=== PATIENT | male | born 1990 | race Caucasian/White ===

== ENCOUNTER 2016-12-02 12:25 | Observation (INO) | payer OTHER ==
[~2016-12-02] VITALS: Ht 175.3 cm; Wt 95.4 kg
[2016-12-02] VITALS (9 sets, daily range): BP systolic 100–134; BP diastolic 55–79; PULSE 61–92; RESP 15–24; O2SAT 98–100
[~2016-12-02 12:25] MED LIST: HYOS-21 SL; LORA2TAB PO; Propofol 10,000 mCg/mL 20 mL Inj ONE; SERT20OR6 PO; TRAZ-118 PO
--- NOTE | 2016-12-02 12:46 | ED.REPORT ---
HPI-General Illness Date of Service Dec 02, 2016 ED Provider: Jarred Walker MD Patient is a 26-year-old man with history of cholestasis and liver failure in 2016. He presents with acute onset dizziness, abdominal pain, and black stools this morning. He was in his usual state of health today at work when these symptoms came on. As abdominal pain is a throbbing, dull, constant epigastric pain, he additionally feels pain in his back. He will occasionally have sharp pains as well. This morning he had 2 black stools. He has some burning substernal chest pain. Over the last week he has had 4-5 episodes of drinking quite a bit of alcohol, as he did last night. He is feeling nauseous with no vomiting. He has had some bouts of blurry vision. He does not have a headache , shortness of breath, weakness, or diarrhea. Nursing Notes Stated Complaint: STOMACH PAIN Chief Complaint: Male Abdominal Pain Nursing Notes Reviewed: Yes Allergies: Uncoded Allergies: BEE STINGS (Allergy, Intermediate, swelling, 08/06/14) Scheduled Sertraline HCl (Sertraline) 20 Mg/1 Ml Oral.conc 75 MG PO DAILY Trazodone (Trazodone) 100 Mg Tablet 100-200 MG PO HS Scheduled PRN Hyoscyamine SL (Hyoscyamine SL) 0.125 Mg Subl 0.125 MG SL Q4 PRN PRN abdominal spasm Lorazepam (Lorazepam) 2 Mg Tablet 2 MG PO HS PRN PRN For Insomnia General Time Seen by MD: 12:42 Chief Complaint Abdominal pain, Dizziness Hx Obtained From: Patient Arrived By: Walk-in Sudden in Onset?: Yes Past Medical History Past Medical History Notes: October 2015 ABDOMINAL US IMPRESSION: 1. No findings to suggest biliary ductal obstruction. 2. Possible polyp within the gallbladder fundus, with its size greater than 1 cm warranting surgical consult. Consider confirmation with repeat limited abdominal ultrasound when patient is fasting, for optimal gallbladder distention. Dictated by: Jorge Lua M.D. on 11/06/2015 at 17:53 Past Medical History Admitted and diagnosed with acute cholestatic jaundice and pruritus possibly related to anabolic steroid use. Past Surgical History multiple orthopedic surgeries Multiple ear surgeries In surgery Appendectomy Family History No family history of colon cancer, ulcerative colitis, Crohn's, celiac disease. Father had OR at the age of 56 as did his father. Positive family history of diabetes. Smoking History Never Smoker Social History Pt reports occasional recreational cocaine use He denies recently using anabolic steroids and testosterone Alcohol Use: "Social" ("quite a few" 3-4 times last week and last night) Drug Use: Denies drug use Other Social History: Good social support, Local resident Ambulatory Status Independent Review of Systems A comprehensive 10 point review of systems was conducted with the patient and found to be negative except as above in the History of Present Illness. Full Review of Systems Constitutional: Denies: Fever Eyes: Denies: Blurred bilateral Ears / Nose / Throat: Denies: Sore throat Respiratory: Denies: Shortness of breath Cardiovascular: Denies: Chest pain GI: Reports: Abdominal pain, Bloody/tarry stool, Melena Male: Denies Testicular pain Musculoskeletal: Denies: Back pain Hematologic: Denies Bruising Endocrine: Denies: Polyuria Skin: Denies Rash Allergy / Immune: Denies: Itching Neurologic: Denies: Headache Psychiatric: Denies: Change mental status Complete sys rev & neg: except as marked. Physical Exam General: mild distress, well-developed, well-nourished, appropriately interactive HEENT: Normocephalic, atraumatic. External ears without defect. Pupils equal, round, and reactive to light and accommodation. Anicteric sclerae, moist conjunctivae, and no lid lag. Oropharynx free of erythema and cobble stoning with moist mucosa. Neck: Supple with full range of motion. No jugular venous distension. No lymphadenopathy or thyromegaly. Cardiovascular: mild tachycardia, regular rhythm with no murmurs, rubs, or gallops appreciated Pulmonary: Clear to auscultation bilaterally with no crackles, wheezes, or rhonchi. Normal respiratory effort with no use of accessory muscles. Abdomen: Bowel tones present. Soft, mildly tender in epigastric and right upper quadrant regions, nondistended. No hepatosplenomegaly or masses appreciated. Extremities: No clubbing, cyanosis, edema, or lymphadenopathy appreciated. Skin: Normal temperature, turgor, and texture; no rash, ulcers, or subcutaneous nodules appreciated. Neurological: Cranial nerves grossly intact. Normal muscle strength, tone, and bulk. Coordination, and sensory function within normal limits. No gait impairment. Psychiatric: Normal mood and affect. Alert and oriented to person, place, and time. Vital Signs Vital Signs Date Time Temp Pulse Resp B/P Pulse Ox O2 Delivery O2 Flow Rate FiO2 12/02/16 16:48 68 20 119/63 100 Room Air 12/02/16 14:36 76 19 125/63 100 Room Air 12/02/16 12:27 36.4 92 24 123/73 100 Room Air Initial VS: Reviewed, Vital signs normal Interpretation & Diagnostics Lab Results Interpretation Result Diagram: 12/02/16 1330 12/02/16 1330 Test 12/02/16 13:30 White Blood Count 3.8th/mm3 (3.8-10.1) Red Blood Count 4.91mil/mm3 (4.40-5.80) Hemoglobin 15.1g/dL (13.8-17.2) Hematocrit 43.3% (41.0-50.0) Mean Corpuscular Volume 88.2fL (81-100) Mean Corpuscular Hemoglobin 30.8pg (27.0-35.0) Mean Corpuscular Hemoglobin Concent 34.9% (32.0-37.0) Red Cell Distribution Width 12.5% (12.3-15.4) Platelet Count 160bil/L (150-400) Neutrophils (%) (Auto) 67.4% (40-74) Lymphocytes (%) (Auto) 25.3% (14-46) Monocytes (%) (Auto) 5.5% (4-12) Eosinophils (%) (Auto) 1.3% (0-5) Basophils (%) (Auto) 0.5% (0-3) Prothrombin Time 10.8sec (8.1-12.5) Prothromb Time International Ratio 1.01ratio Urine Color Straw (YELLOW) Urine Appearance Slightly cloudy Urine pH 8.0 (5.0-8.0) Urine Specific [place] 1.015 (1.003-1.035) Urine Protein Negativemg/dL (NEG,TRACE) Urine Glucose (UA) Negativemg/dL (NEGATIVE) Urine Ketones Negativemg/dL (NEGATIVE) Urine Occult Blood Negative (NEGATIVE) Urine Nitrite Negative (NEGATIVE) Urine Bilirubin Negative (NEGATIVE) Urine Urobilinogen Normalmg/dL (NORMAL) Urine Leukocyte Esterase Negative (NEGATIVE) Urine RBC 0-2/hpf (0-2) Urine WBC 0-5/hpf (0-5) Urine Epithelial Cells Occasional/hpf (NONE-MOD) Urine Crystals Amorphous phosphates Urine Bacteria Few/hpf (NONE-FEW) Urine Hyaline Casts None/lpf (NONE) Urine Granular Casts None seen (NONE SEEN) Urine Waxy Casts None seen (NONE SEEN) Urine Red Blood Cell Casts None seen (NONE SEEN) Urine White Blood Cell Casts None seen (NONE SEEN) Urine Mucus None seen (None Seen) Urine Trichomonas None seen (NONE SEEN) Urine Yeast None (NONE SEEN) Urinalysis Comment None Urine Culture Reflexed Not indicated Hold Urine Received (Received) Sodium Level 138mEq/L (134-144) Potassium Level 4.2mEq/L (3.5-5.2) Chloride Level 101mEq/L (97-108) Carbon Dioxide Level 24mmol/L (18-29) Blood Urea Nitrogen 11mg/dL (6-20) Creatinine 0.82mg/dL (0.76-1.27) Estimat Glomerular Filtration Rate 121mL/min (>59) Glucose Level 100mg/dL (60-99) Lactic Acid Level 1.0mmol/L (0.4-2.0) Calcium Level 9.6mg/dL (8.5-10.1) Magnesium Level 1.9mg/dL (1.6-2.6) Total Bilirubin 0.3mg/dL (0.0-1.2) Aspartate Amino Transf (AST/SGOT) 23U/L (0-50) Alanine Aminotransferase (ALT/SGPT) 18U/L (0-44) Alkaline Phosphatase 68U/L (25-150) Total Protein 7.5g/dL (6.4-8.4) Albumin 4.6g/dL (3.4-5.0) Lipase 19U/L (13-60) Lab Results Interpretation: H&H normal. Stool guaiac positive INR normal ECG Interpretation ECG Interpretation: ECG done due to substernal chest pain and family history of early cardiac Regular rate at 62 Probable early repolarization pattern Time: 14:24 Interpreted by: ED physician Re-Eval/Medical Decision Med Decision/Clinical Course Patient is a 26 year old male with past medical history of liver failure and cholestasis one year ago. Today he presents with acute onset dizziness, epigastric pain, nausea, and melena. Vital signs are stable, H&H normal. Patient had 40 mg IV Protonix, 1 L fluid. He had improvement in his symptoms and decreased pain down to 2/10. Patient's Garner Blatchford bleeding score is 3 due to melena and previous hepatic disease history which puts him in the high risk for bleed category. Dr. Rodriguez of gastroenterology was consulted. He will see patient, and plans to do upper endoscopy today. Patient remained in stable condition throughout his stay in the emergency department. Patient's questions were answered. He was consulted on diagnosis, laboratories results, and alcohol cessation. Plan admission for further management and evaluation. Source of Hx: Old records Time of Eval: 14:30 Re-Evaluation/Progress Note: Patient appears more calm, pain is decreased. Consultation #1: Referral / Consult Name: Suman Rodriguez MD Requested Call at: 14:35 Call Returned at: 14:40 Show Card Writer: Will see patient Consultation #2: Referral / Consult Name: Layton Hatfield MD Consulted With: Hospitalist Call Returned at: 16:55 Show Card Writer: Will see patient, Agrees with eval, Agrees with plan, Accepts admit Counseled Regarding: Diagnosis, Lab results, Need for admission Discharge & Departure Primary Impression: GI bleed GI bleed type/associated pathology: melena Qualified Code: K92.1 - Melena Additional Impression: Melena Disposition: ADMITTED TO HOSPITAL Discharge Condition All VS Reviewed: Yes Condition: Stable Patient Instructions: Gastritis (ED) Referrals: Alberto Pineda DO (PCP) [facility] Attending Statement I saw and evaluated the patient independently of the resident. I agree with the plan and findings as documented above. copies to: Janki Alexander DO; [facility] Jarred Walker MD Dec 02, 2016 12:46 Janki Alexander DO Dec 02, 2016 13:53
[2016-12-02] MEDS ORDERED: 0.9% Sodium Chloride 1,000 ML IV ONE (13:26)
[2016-12-02] MEDS ORDERED: Pantoprazole 4 mg/mL 10 mL Inj IVPUSH ONE ×2 (13:30→17:10)
[2016-12-02 13:49] LABS: BASOPHILS % (AUTO) 0.5 % (0-3); EOSINOPHILS % (AUTO) 1.3 % (0-5); MONOCYTES % (AUTO) 5.5 % (4-12); Mean Corpuscular Hemoglobin 30.8 pg (27.0-35.0); Mean Corpuscular Volume 88.2 fL (81-100); NEUTROPHILS % (AUTO) 67.4 % (40-74); Platelet Count 160 bil/L (150-400)
[2016-12-02] MEDS: Ondansetron 2 mg/mL 2 mL Inj IVPUSH PRN ×2 (13:49→16:48)
[2016-12-02 14:21] LABS: Magnesium 1.9 mg/dL (1.6-2.6)
[2016-12-02 14:46] LABS: APPEARANCE,URINE SLIGHTLY CLOUDY (CLEAR,HAZY); COLOR,URINE STRAW (YELLOW); OCCULT BLOOD,URINE NEGATIVE (NEGATIVE); UROBILINOGEN,URINE NORMAL (NORMAL)
[2016-12-02 15:29] LABS: INR 1.01 ratio
[2016-12-02] MEDS ORDERED: 0.9% Sodium Chloride 1,000 ML IV SCH (16:20)
[2016-12-02] MEDS ORDERED: Pantoprazole Inj 80 MG in 0.9% Sodium Chloride 80 ML IV SCH (16:35)
--- NOTE | 2016-12-02 16:59 | PCM.HPMED ---
Subjective Date of Service Dec 02, 2016 Primary Provider: Admitting Physician: Primary Care Physician: Alberto Pineda DO Attending Physician: Chief Complaint: Abdominal pain, blood in the stool. 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 Fecal occult blood in the emergency department was positive. GI was consulted and planning endoscopy. Patient is otherwise stable with stable hemoglobin and no active bleeding now. Review of Systems: REVIEW OF SYSTEMS: GENERAL: no malaise, no fevers., SEE HPI HEENT: Negative for frequent or significant headaches All other reviewed and negative other than HPI. Allergies Uncoded Allergies: BEE STINGS (Allergy, Intermediate, swelling, 08/06/14) Home Medications Patient does not take any medications PMH Hepatitis caused by steroids Family History Hypertension Social History Hx Alcohol Use: Yes (LIVER CIRRHOSIS;"CUTTING DOWN ON ETOH.") Hx Substance Use: Yes (MARIJUANA, COCAINE OCCASIONAL) Hx Tobacco Use: No Smoking Status: Never Smoker Exam Vital Signs Vital Sign - Last Date Time Temp Pulse Resp B/P Pulse Ox O2 Delivery O2 Flow Rate FiO2 12/02/16 16:48 68 20 119/63 100 Room Air 12/02/16 12:27 36.4 Exam PHYSICAL EXAM: GENERAL: Alert, not in distress, cooperative HEAD: atraumatic, normocephalic, no bruises. EYES: PRICILA, EOMI, anicteric, able to fully open and close eyelids SKIN: Skin color normal, turgor normal. No visible rashes or lesions. EAR, NOSE, MOUTH, THROAT: Lips, oral mucosa, tongue are moist, pink, no lesions. NECK: supple ROM normal. RESPIRATORY: Lungs clear to auscultation. Good diaphragmatic excursion.d. CARDIAC: normal S1 and S2; no rubs, murmurs, or gallops; regular rhythm ABDOMEN: Abdomen soft, mildly tender in the epigastrium. BS normal. No masses or organomegaly. MUSCULOSKELETAL: ROM full, muscles are not tender EXTREMITIES: no pitting edema in LE, no new deformities or skin discoloration. NEURO: Alert, oriented X 3, Cranial nerves II-XII intact, Grossly normal motor function. PULSES: 2+ radial, 2+ carotid Lab and Diagnostics Result Diagram: 12/02/16 1330 12/02/16 1330 Assessment & Plan 26-year-old male with a past medical history of hepatitis presented to the emergency department complaining of epigastric abdominal pain and black and distal. Fecal occult blood test was positive. GI was consulted and planning endoscopy. Hemoglobin is stable, vitals are stable. Plan - will monitor CBC daily - f/u with GI - c/w current meds, protonix IV, IVF DVT PROPHYLAXIS: Relation Code status - full code Disposition: discharge probably tomorrow Plan of care discussed with ED physician; Labs reviewed. Plan of care, diagnostic procedures and available alternatives were discussed and reviewed with patient/. All questions answered. Patient verbalized understanding, approved and agreed to plan of care. Resuscitation Status: CPR: Attempt Resuscitation Layton Hatfield MD Dec 02, 2016 16:59
[2016-12-02] MEDS ORDERED: Alum-Mag Hydrox-Simeth 30 mL Suspension PO PRN (17:05)
[2016-12-02] MEDS ORDERED: Polyethylene Glycol (PEG) 17 Gm Powder PO PRN (17:05)
[2016-12-02] MEDS ORDERED: Ondansetron 2 mg/mL 2 mL Inj IVPUSH PRN (17:05)
[2016-12-02] MEDS ORDERED: [UNRECOGNIZED DRUG - OTHER] PO (17:22)
[2016-12-02] MEDS ORDERED: MILK175C4 PO (17:22)
[2016-12-02] MEDS ORDERED: MULT-676 PO (17:22)
--- NOTE | 2016-12-02 17:26 | CONS ---
[address] [address] CONSULTATION REPORT PATIENT: LG CHING : 1990 MR#: [id number] ADMIT: 12/02/2016 JOB ID: [id number] DATE OF SERVICE: 12/02/2016 REASON FOR CONSULTATION: It was pleasure seeing the patient at [facility] for abdominal pain and melena. HISTORY OF PRESENT ILLNESS: This is a 26-year-old gentleman who had history of cholestatic jaundice with pruritus due to anabolic steroids and testosterone use. He was treated medically and was followed by Dr. Castro in my department. The patient was treated medically and he recovered. At the time he was also drinking significant alcohol and he stopped drinking alcohol for a while, then he resumed drinking his alcohol again, and over the weekend he drank alcohol including whiskey multiple times, as well as a significant amount of beer. He also used cocaine. He also had some beer yesterday. This morning he woke up and had sudden onset of throbbing dull, moderately intense epigastric pain radiating to the back. Occasionally it was intermittently sharp, which caused him to stop what he is doing. Then this was followed by two episodes of black stools. Because of this, the patient came to the emergency department. In the emergency department he was hemodynamically stable and they saw a stool which was black and was guaiac positive. However, his laboratory data were normal with hemoglobin 15, INR of 1. Chemistry showed BUN of 11, creatinine of 0.82, and LFTs were otherwise normal. PAST MEDICAL HISTORY: As above. PAST SURGICAL HISTORY: None. SOCIAL HISTORY: Alcohol use, as well as occasional cocaine. FAMILY HISTORY: Noncontributory. ALLERGIES: BEE STINGS. MEDICATIONS: He is on Zofran and pantoprazole here in the emergency department. PHYSICAL EXAMINATION: Vitals showed temp of 36.4, pulse 68, respiration 20, blood pressure 119/63. Head and neck: No icterus. Lungs: Clear. Cardiovascular: Regular rate and rhythm. Normal S1 and S2. Abdomen: Soft. Mild epigastric tenderness, without any guarding, rebound, or firmness. Nondistended, with normoactive bowel sounds. Extremities: No pitting edema of the ankles. Skin shows no jaundice. LABORATORY DATA: As above. IMPRESSION: This is a gentleman with epigastric pain and significant alcohol use. He was doing well until this morning. Did not use any drugs since over the weekend. He has been drinking alcohol. Guaiac positive, with melena reported. Hemodynamically stable. Hemoglobin normal. RECOMMENDATION: 1. Agree with Protonix. 2. EGD with anesthesia. 3. NPO for now.
--- NOTE | 2016-12-02 18:40 | NUR ---
Arrival to [facility] Rm 1001 Pt arrived to [facility] Rm 1001, A&Ox3, able to HUMPHREYS, answers questions appropriately; IV NS 100/hr infusing, c/o 10/25 abd, sharp, stabbing pain, pt NPO at this time and to be taken to ENDO soon. Tucked in to bed and friends at BS, report given to NOC shift ROSA MARIA Mejia.
[2016-12-02] MEDS: 0.9% Sodium Chloride 1,000 ML IV SCH (19:14)
--- NOTE | 2016-12-02 19:30 | NUR ---
Off floor to Endo Pt. off floor to Endo at 1910. Transported via wheelchair via sound effects technician.
--- NOTE | 2016-12-02 19:54 | PCM.ENDEGD ---
EGD Date of Service: Dec 02, 2016 Physician Suman Rodriguez Pre Procedure Diagnosis: Melena and abdominal pain Post Procedure Dx & Findings: Diffuse erosive gastropathy Procedure Esophagogastroduodenoscopy PROCEDURE IN DETAIL: Sedation given by anesthesiology After proper sedation, Olympus video endoscope was inserted into patient's mouth and esophagus was successfully intubated. Scope introduced esophagus. Esophagus showed normal shiny whitish mucosa consistent with squamous cell component. Z line was intact at 40 cm from the incisors. Scope further advanced to the stomach. Diffuse gastric atrophy with bumpy mucosa with multiple sub millimeter erosions from antrum to the body of the stomach. On the fundus, there were streaks of erosions with surrounding redness. Multiple biopsies obtained throughout the entire stomach. Cardia fundus body antrum pylorus were all visualized. Retroflexion was done. Stomach was easily inflated and deflatable using air. Scope further advanced to the distal duodenum. Duodenum revealed normal villous structures with normal appearing folds without any mass ulcer erosion. Impression Erosive gastropathy. May explain the melena and guaiac positive stool Something like this should not be causing anemia. Recommendation Advanced diet as tolerated Switch to oral PPI Presedation Assessment Risks and Benefits Informed consent was obtained from the patient after all risks and benefits including but not limited to drug reaction, infection, pain, bleeding, perforation, as well as alternatives were discussed. Patient monitoring Continuous pulse oximetry, cardiac monitoring, blood pressure monitoring, IV access, and oxygen at 2L per nasal cannula. Complications There were no periprocedural complications identified. Post Procedure Plan Post Procedure Recommendations 1. Restrict activities today. 2. Resume normal activities in the morning. 3. Resume medications. 4. GERD behavioral modification: - Avoid fatty, acidic, spicy, large meals - Do not lie down after meals - Do not eat or drink anything for at least 2 1/2 hours before going to bed at night - Discontinue tobacco and alcohol - Decrease or avoid caffeine - Avoid chocolate and mints - Decrease weight - Avoid aspirin and non steroidal anti-inflammatory agents (NSAID) such as Aleve, Advil, Mobic, Naproxen, Ibuprofen, etc 5. Add proton pump inhibitor. Take 30 minutes before 1st meal of the day. 6. Patient informed of normal post procedure side effects as bloating, drowsiness, blood streaking in the stool 7. If gastric biopsy reveal H.pylori, continue with appropriate treatment 8. If small bowel biopsy reveals celiac, continue with appropriate treatment 9. Please don't hesitate to call me with any questions Suman Rodriguez MD Dec 02, 2016 19:54
[2016-12-02] MEDS ORDERED: Lactated Ringer's 1,000 ML IV ONE (19:56)
--- NOTE | 2016-12-02 20:41 | NUR ---
Pt. back on floor Pt. came back on [facility] floor at 2029. Transported via endo bed via endo RN.
[2016-12-03 00:20] VITALS: BP 137/85; PULSE 65; RESP 18; O2SAT 98
--- NOTE | 2016-12-03 03:19 | NUR ---
Pain/ Diet Pt. experiencing abdominal pain. IV morphine given and effective for pain. Pt. tolerating clear liquids well with no nausea noted. Will continue to monitor.
[2016-12-03 04:36] VITALS: BP 115/71; PULSE 54; RESP 16; O2SAT 98
[2016-12-03] MEDS: 0.9% Sodium Chloride 1,000 ML IV SCH (04:43)
--- NOTE | 2016-12-03 07:44 | NUR ---
Social Work: Screening D: EMR reviewed. Pt is a 26 y/o male admitted [facility], with no readmit risk score assigned, for GI Bleed per H&P. Pt's insurance is [employer] and PCP is Alberto Pineda DO. Pt's NOK is mother Lisbeth Schroeder ([phone]). Pt lives at home with friends/roommates in [place]. Per EMR, pt has a hx of ETOH and substance abuse. Due to hx with substance abuse, pt screens in for a full assessment. SW will discuss pt with MD in multidisciplinary rounds and request CD order. SW will continue to follow. A: Pt who is independent at baseline. Pt who has a hx of ETOH and substance abuse. SW will request CD order from MD for CD assessment. P: Pt who has a hx of ETOH and substance abuse. SW will request CD order from MD for CD assessment. SW will continue to follow. DICK Eagle
--- NOTE | 2016-12-03 07:47 | PCM.DICHF ---
CHF Discharge Instructions Dates of Hospitalization Date of Hospital Admission Dec 02, 2016 at 17:07 Providers Admitting Physician: Layton Hatfield MD Primary Care Physician: Alberto Pineda DO Attending Physician: Layton Hatfield MD Diagnosis at Time of Discharge Diagnosis at time of discharge Erosive Gastritis, GERD Problems: Labs Ejection Fraction Laboratory Tests Test Range/Units 12/02/16 13:30 Sodium Level 134-144 mEq/L 138 Potassium Level 3.5-5.2 mEq/L 4.2 Chloride Level 97-108 mEq/L 101 Carbon Dioxide Level 18-29 mmol/L 24 Blood Urea Nitrogen 6-20 mg/dL 11 Creatinine 0.76-1.27 mg/dL 0.82 Estimat Glomerular Filtration Rate >59 mL/min 121 Glucose Level 60-99 mg/dL 100 Lactic Acid Level 0.4-2.0 mmol/L 1.0 Calcium Level 8.5-10.1 mg/dL 9.6 Magnesium Level 1.6-2.6 mg/dL 1.9 Total Bilirubin 0.0-1.2 mg/dL 0.3 Aspartate Amino Transf (AST/SGOT) 0-50 U/L 23 Alanine Aminotransferase (ALT/SGPT) 0-44 U/L 18 Alkaline Phosphatase 25-150 U/L 68 Total Protein 6.4-8.4 g/dL 7.5 Albumin 3.4-5.0 g/dL 4.6 Lipase 13-60 U/L 19 Discharge Medications Other Medication Instructions You have received instructions on the medications your physician has prescribed at discharge. A list of these medications has been provided to you. Keep this and a list of all current medications with you. Keep the dates when you received the Flu and Pneumococcal (Pneumonia) Vaccines. Last known date of receiving Flu Vaccine Declines Last known date of receiving Pneumococcal (Pneumonia) Vaccine Diet Diet Instructions [facility] Low Salt diet ( 2 grams or less sodium/day) Choose foods and drinks with low or no salt. Remove salt shaker from the table. Read Nutritional Facts labels. Weight Monitoring 1. Weigh yourself every day at the same time and write it down. 2. Take your weight log to your doctor visits. 3. Call your doctor if you gain 3-5 pounds over 2-3 days. 4. Your weight today is 210.32 lbs. Additional Instructions Smoking--Tobacco Use If you smoke, you are strongly encouraged to stop. If you have recently quit smoking, CONGRATULATIONS. For further information to stop smoking or to remain smoke-free, Follow Up Plan Follow Up: Days (Follow up with [facility] in 3-5 days after discharge to find out about results of your biopsy and possible additional treatment. ) Report or call your Doctor REPORT TO YOUR DOCTOR OR SEEK MEDICAL ATTENTION: *Shortness of breath or have more difficulty breathing. *Swelling of your feet, ankles, hands or abdomen. *Feeling tired with normal activity or experiencing dizziness or fainting. *Trouble sleeping or waking up feeling short of breath or coughing. *Chest pain or pressure. *Weight gain of 3-5 pounds over 2-3 days. *Inability to take medications or follow treatment plan abdominal pain, blood in the stool, nausea, vomiting Heart Attach warning signs HEART ATTACK WARNING SIGNS * Chest discomfort. *Discomfort or pain in one or both arms, back, neck, jaw or stomach. *Shortness of breath. *Breaking out in a cold sweat, nausea, or lightheadedness. If you're having heart attack warning signs: CALL . DON'T WAIT MORE THAN A FEW MINUTES - 5 MINUTES AT MOST - TO CALL . Additional Information Resume normal activities in the morning. GERD behavioral modification: - Avoid fatty, acidic, spicy, large meals - Do not lie down after meals - Do not eat or drink anything for at least 2 1/2 hours before going to bed at night - Discontinue tobacco and alcohol - Decrease or avoid caffeine - Avoid chocolate and mints - Decrease weight - Avoid aspirin and non steroidal anti-inflammatory agents (NSAID) such as Aleve, Advil, Mobic, Naproxen, Ibuprofen, etc Proton pump inhibitor. Take 30 minutes before 1st meal of the day. Follow up with [facility] for biopsy result. If gastric biopsy reveal H.pylori you will need additional treatment. If small bowel biopsy reveals celiac, you will need appropriate treatment Layton Hatfield MD Dec 03, 2016 07:47
[2016-12-03] MEDS ORDERED: PANT40TA3 PO (07:50)
--- NOTE | 2016-12-03 07:52 | PCM.DC.MED ---
Discharge Summary Date of Service Dec 03, 2016 Dates of Hospitalization Date of Hospital Admission Dec 02, 2016 at 17:07 Date of Discharge: Dec 03, 2016 Providers: Admitting Physician: Layton Hatfield MD Primary Care Physician: Alberto Pineda DO Attending Physician: Layton Hatfield MD Diagnosis at Time of Discharge Diagnosis at Time of Discharge Erosive Gastritis, GERD Hospital Course Hospital Course: 26-year-old male with a past medical history of hepatitis presented to the emergency department complaining of epigastric abdominal pain and black and distal. Fecal occult blood test was positive. GI was consulted and planning endoscopy. Hemoglobin was stable, vitals were stable. GI was consulted. Patient underwent EGD which showed erosive gastritis, biopsy were taking to check for Helicobacter pylori, celiac disease . GI recommended continuing with PPIs, follow up in clinic for biopsy results. I discussed this recommendation with the patient. She will follow up with his PCP and GI for further evaluation and biopsy results.After patient improved he was discharged home with recommendation to follow up with his PCP for further management of his medical problems. Physical exam: patient was seen and examined on the day of discharge Patient Condition @ Discharge: good Operations During Hospitalization: EGD Discharge Disposition: home Discharge Activity: resume regular activity Discharge Diet: regular diet, heart healthy, low fat, low salt Information Provided to Patient: information about discharge medications Discharge Medications: I discussed with patient medication dosage, usage, goals of therapy, side effects, alternatives. During discharge patient was allert, oriented, fully competent, able to make own informed decisions. We discussed possible severe side effects, adverse reactions, benefits, risks, alternatives of current and newly prescribed medications and diagnostic procedures. Patient verbalized understanding and agreed to current plan of care and discharge. DISCHARGE ACTIVITY: 1. Discussed with patient re: discharge plan of care/treatment, and follow up care/services. 2. Patient agreed with discharge plan and further plan of care, all questions were answered/addressed, no further questions at the time of discharge. . Exam Vital Signs (Last) Date Time Temp Pulse Resp B/P Pulse Ox O2 Delivery O2 Flow Rate FiO2 12/03/16 04:36 36.8 54 16 115/71 98 Room Air Test 12/02/16 13:30 12/02/16 18:57 White Blood Count 3.8th/mm3 (3.8-10.1) Red Blood Count 4.91mil/mm3 (4.40-5.80) Hemoglobin 15.1g/dL (13.8-17.2) Hematocrit 43.3% (41.0-50.0) Mean Corpuscular Volume 88.2fL (81-100) Mean Corpuscular Hemoglobin 30.8pg (27.0-35.0) Mean Corpuscular Hemoglobin Concent 34.9% (32.0-37.0) Red Cell Distribution Width 12.5% (12.3-15.4) Platelet Count 160bil/L (150-400) Neutrophils (%) (Auto) 67.4% (40-74) Lymphocytes (%) (Auto) 25.3% (14-46) Monocytes (%) (Auto) 5.5% (4-12) Eosinophils (%) (Auto) 1.3% (0-5) Basophils (%) (Auto) 0.5% (0-3) Prothrombin Time 10.8sec (8.1-12.5) Prothromb Time International Ratio 1.01ratio Urine Color Straw (YELLOW) Urine Appearance Slightly cloudy Urine pH 8.0 (5.0-8.0) Urine Specific [place] 1.015 (1.003-1.035) Urine Protein Negativemg/dL (NEG,TRACE) Urine Glucose (UA) Negativemg/dL (NEGATIVE) Urine Ketones Negativemg/dL (NEGATIVE) Urine Occult Blood Negative (NEGATIVE) Urine Nitrite Negative (NEGATIVE) Urine Bilirubin Negative (NEGATIVE) Urine Urobilinogen Normalmg/dL (NORMAL) Urine Leukocyte Esterase Negative (NEGATIVE) Urine RBC 0-2/hpf (0-2) Urine WBC 0-5/hpf (0-5) Urine Epithelial Cells Occasional/hpf (NONE-MOD) Urine Crystals Amorphous phosphates Urine Bacteria Few/hpf (NONE-FEW) Urine Hyaline Casts None/lpf (NONE) Urine Granular Casts None seen (NONE SEEN) Urine Waxy Casts None seen (NONE SEEN) Urine Red Blood Cell Casts None seen (NONE SEEN) Urine White Blood Cell Casts None seen (NONE SEEN) Urine Mucus None seen (None Seen) Urine Trichomonas None seen (NONE SEEN) Urine Yeast None (NONE SEEN) Urinalysis Comment None Urine Culture Reflexed Not indicated Sodium Level 138mEq/L (134-144) Potassium Level 4.2mEq/L (3.5-5.2) Chloride Level 101mEq/L (97-108) Carbon Dioxide Level 24mmol/L (18-29) Blood Urea Nitrogen 11mg/dL (6-20) Creatinine 0.82mg/dL (0.76-1.27) Estimat Glomerular Filtration Rate 121mL/min (>59) Glucose Level 100mg/dL (60-99) Lactic Acid Level 1.0mmol/L (0.4-2.0) Calcium Level 9.6mg/dL (8.5-10.1) Magnesium Level 1.9mg/dL (1.6-2.6) Total Bilirubin 0.3mg/dL (0.0-1.2) Aspartate Amino Transf (AST/SGOT) 23U/L (0-50) Alanine Aminotransferase (ALT/SGPT) 18U/L (0-44) Alkaline Phosphatase 68U/L (25-150) Total Protein 7.5g/dL (6.4-8.4) Albumin 4.6g/dL (3.4-5.0) Lipase 19U/L (13-60) Hold Urine Received (Received) Discharge Medications Discharge Medications ([Branched Amino Acids]) 1 PO ONCE OR TWICE DAILY (Reported) Milk Thistle Seed Extract (Milk Thistle) 175 Mg Capsule 200 MG PO EVERY OTHER DAY (Reported) Multivitamin,Therapeutic (Thera) 1 Each Tablet 1 EACH PO DAILY (Reported) Pantoprazole (Pantoprazole DR) 40 Mg Tablet.dr 40 MG PO DAILY Follow up with your PCP and [facility] for refils and further evaluation of your abdominal pain. Prescribed by: MD Liu QUINTANA Andriy MD Dec 03, 2016 07:52
[2016-12-03] MEDS ORDERED: Pantoprazole 40 mg ER24 Tablet PO SCH (08:30)
[2016-12-03 08:42] VITALS: BP 105/61; PULSE 59; RESP 18; O2SAT 99
--- NOTE | 2016-12-03 10:27 | NUR ---
Social Work: Initial Assessment/Readiness for Discharge/Multi-Disciplinary Rounds D: EMR reviewed. Please see Initial Assessment linked to this note for more information. Pt is a 26 y/o male admitted [facility] with no readmit risk score assigned for GI Bleed per H&P. Pt's insurance is [employer]. PCP is Alberto Pineda DO. LEÓN met with pt at bedside to conduct initial assessment. Pt was alert and oriented x3. SW explained role and wrote phone number on white board. SW provided [facility] Discharge Planning Checklist and encouraged pt to contact SW for any discharge planning questions. Pt discussed in multidisciplinary rounds. Pt has a hx of ETOH and substance abuse. SW received MD order for CD assessment. SW completed CD assessment - please see CD Assessment note. No other MD orders received, no other SW needs identified. Pt lives at home with friends/roommates in [place]. Pt is independent with all ADLs. Pt anticipated to transport home today with friend via POV. Pt declined DPOA/advanced directive ppw. A: Pt who is independent at baseline and has the capacity for self-care. P: Pt anticipated to discharge home today via POV. No SW needs identified, CD order received - pt assessed for chemical dependency (see chemical dependcy assessment) SW provided CD resources including CD agency phone numbers, and "public services in [facility]" list. Addendum: 12/03/16 at 1040 by MIRZA DE PAZ Amended: Links added.
--- NOTE | 2016-12-03 10:40 | NUR ---
Social Work: Chemical Dependency Assessment Current Circumstances/Reason for Referral: Pt has reported hx of ETOH and substance use including Marijuana and Cocaine. History of Substance Use: Pt states he has beers on the weekend and occassionally uses Cocaine and Marijuana. Pt states he uses Cocaine a couple times month and Marijuana/ETOH regularly on the weekends. History of Treatment Programs: Pt stated he went to out treatment after DUI 6 years ago. He completed treatment in [place] (pt can't recall name of treatment agency at this time). History of Withdrawal Symptoms: Pt did not express having a history of withdraw symptoms - pt declines being dependent on substances. Family History: Pt's father had hx with ETOH and substance abuse. Pt's father last year after being sober for 10 years. LEÓN discussed how pt is dealing with the loss of his father - pt stated "it has been difficult but I am working through it" Pt declined using substances to help process grief - pt states he uses substances socially and is not dependent. History of Sobriety and Supports: Pt states he has a group of friends who are very supportive - pt states his Mother does not use substances and he has a very close relationship with her. Patient's Perception of Use: Pt states he uses substances socially but understands that one day he will have to stop as he get older. Suicide Risk Assessment: Pt declines any thoughts of harming himself and would never consider doing so. Recommendations for Referral and Follow-up: LEÓN provided resource phone numbers and [facility] list for [facility]. SW encouraged pt to reach out for additional support after the loss of his father. SW encouraged pt to contact CD resources if he reconsiders social use v. dependency. Pt was agreeable to accepting resources and thankful for meeting with him. LEÓN provided phone number on white board and encouraged pt to contact for any questions. DICK Eagle
--- NOTE | 2016-12-03 10:51 | NUR ---
Social Work: Discharge D: EMR reviewed. Pt is on day 1 of hospitalization. SW received MD order for CD assessment. SW completed assessment and provided resources (see "chemical dependency assessment." A: Pt who is independent at baseline and has the capacity for self-care. P: Pt anticipated to discharge home today with friend Fernandez via POV. CD order received - pt assessed for chemical dependency (see chemical dependancy assessment) SW provided CD resources including CD agency phone numbers, and "public services in [facility]" list. Pt declined needing CD services at this time but was agreeable to accept resources. No other SW needs identified at this time. DICK Eagle
--- NOTE | 2016-12-03 11:18 | NUR ---
Discharge Patient discharged home. IV DC'd and intact. Discharge instructions given with no questions. RX Protonix faxed to [facility]. Appointment made for follow up with GI on 12/10/2016, check in time at 0835. Patient gathered all belongings. Nurse escorted patient out via walking.
--- NOTE | 2016-12-08 17:50 | PATH ---
SURGICAL PATHOLOGY Attending Physician:Suman Rodriguez M.D. CASE STATUS: Signed Out PATIENT NAME: LG CHING PID: [id number] : 1990 DATE COLLECTED:12/02/2016 00:00 SPECIMEN: Gastric, Biopsy CLINICAL HISTORY: 1). GASTRIC EROSIONS (RULE OUT H.PYLORI) FINAL DIAGNOSIS: Gastric Erosions, Biopsies: Gastric antral and body mucosa with chronic active Helicobacter gastritis. Helicobacter organisms identified on H&E. Negative for intestinal metaplasia, dysplasia, and malignancy. ICD10: B96.81 GROSS DESCRIPTION: The specimen is received in one formalin filled container labeled with the patient's name, sublabeled "gastric erosions" and consists of multiple portions of tissue which aggregate to 0.3 x 0.3 x 0.3 CM. The specimen is entirely submitted in one cassette. 12/03/2016DC ICD-9 CODES: CPT CODES: 1: 62586 Electronically Signed Out Eriberto Brasher MD, Ph.D. [facility] [address], [place] [address] Technical component performed at [facility], [address] [place] [address] Ave[address], [place], [address]
== END 2016-12-03 11:20 | disposition home or self-care (01) ==
LOC: SED 12:25 → OSC 17:07
PROVIDERS: ADMIT Internal Medicine; ATTEND Internal Medicine
DX: K29.70 Gastritis, unspecified, without bleeding (principal); K31.9 Disease of stomach and duodenum, unspecified; K21.9 Gastro-esophageal reflux disease without esophagitis; K92.1 Melena; R10.13 Epigastric pain; K83.1 Obstruction of bile duct; F12.90 Cannabis use, unspecified, uncomplicated; F10.10 Alcohol abuse, uncomplicated; F14.90 Cocaine use, unspecified, uncomplicated; Z86.19 Personal history of other infectious and parasitic diseases; Z91.030 Bee allergy status; Z79.52 Long term (current) use of systemic steroids
CPT/HCPCS: 36415; 43239; 80053; 81000; 83605; 83690; 83735; 85025; 85610; 93005; 96361; 96374; 96375; 96376; 99285; G0378; J2270; J2405; J2704; J7030; J7120; S0164